=== PATIENT | female | born 1995 | race Caucasian/White ===

== ENCOUNTER 2016-12-24 13:50 | Emergency (ER) | payer MEDICAID ==
[~2016-12-24] VITALS: Ht 152.4 cm; Wt 55.8 kg
[~2016-12-24 13:50] MED LIST: VICODIN 5/500 M1 TAB PO
[2016-12-24 14:07] VITALS: BP 165/80
--- NOTE | 2016-12-24 14:32 | NUR ---
PATIENT LEFT WITHOUT BEING SEEN BY DR. ALMODOVAR. NO FURTHER CARE PROVIDED FOR PATIENT.
== END 2016-12-24 14:32 | disposition left against medical advice (07) ==
LOC: MED 13:50
DX: R10.9 Unspecified abdominal pain (principal); Z53.21 Procedure and treatment not carried out due to patient leaving prior to being seen by health care provider